=== PATIENT | female | born 1995 | race Two or more races ===

== ENCOUNTER 2020-12-16 10:50 | Inpatient (IN) | payer OTHER ==
[2020-12-16] MEDS ORDERED: LIDOCAINE HCL 1% PRESERVATIVE FREE - 30ML VIAL ONE (12:22)
[2020-12-16] MEDS ORDERED: OXYTOCIN 20 UNITS in 0.9% NS 20 UNIT/1,000 ML INFUS.BAG IV ONE ×2 (12:22→16:00)
[2020-12-16] MEDS ORDERED: WITCH HAZEL 50% (TUCKS) 40 PAD/JAR PAD TP PRN (12:43)
[2020-12-16] MEDS ORDERED: BENZOCAINE 28 GM HEMORRHOIDAL OINTMENT TP PRN (12:43)
[2020-12-16] MEDS ORDERED: ACETAMINOPHEN 325 MG TABLET (FP) PO PRN (12:43)
[2020-12-16] MEDS ORDERED: BENZOCAINE 20% 57 GM BOTTLE TP PRN (12:43)
[2020-12-16] MEDS ORDERED: IBUPROFEN 600 MG TABLET (FP) PO PRN (12:43)
[2020-12-16] MEDS ORDERED: BISACODYL 10 MG SUPP.RECT RC PRN (12:43)
[2020-12-16] MEDS ORDERED: METHYLERGONOVINE MALEATE 0.2 MG/1 ML AMP IM PRN (12:43)
[2020-12-16] MEDS ORDERED: OXYTOCIN 20 UNITS in 0.9% NS 20 UNIT/1,000 ML INFUS.BAG IV SCH (12:45)
[2020-12-16] MEDS ORDERED: ELECTROLYTE-148 SOLN 1,000 ML IV SCH (12:45)
[2020-12-16 14:04] LABS: COCAINE, UR NEGATIVE (NEGATIVE); METHADONE, UR NEGATIVE (NEGATIVE); OPIATES, URI NEGATIVE (NEGATIVE); URINE BARBITURATES NEGATIVE (NEGATIVE)
[2020-12-16 14:09] LABS: URINE BENZODIAZEPINES NEGATIVE (NEGATIVE)
[2020-12-16 14:10] LABS: PHENCYCLIDINE,URINE NEGATIVE (NEGATIVE); URINE AMPHETAMINES NEGATIVE (NEGATIVE)
[2020-12-16 14:30] LABS: HEMATOCRIT 33.5 % (32.4-45.2); HEMOGLOBIN 11.3 GM/dL (10.7-15.3); MCH 28.9 pg (25.7-33.7); MCHC 33.8 g/dl (32.0-36.0); MEAN CELL VOLUME 85.4 fl (80-96); MEAN PLT VOLUME 8.8 fl (7.5-11.1); PLATELET COUNT 231 10^3/uL (134-434); RBC 3.92 M/mm3 (3.60-5.2); RDW 14.8 % (11.6-15.6); WHITE BLOOD COUNT 15.9 K/mm3 (4.0-10.0)
[2020-12-16 14:35] LABS: PROTHROMBIN TIME (PATIENT) 12.1 SEC (9.7-13.0)
[2020-12-16 14:37] LABS: ACTIVATED PTT 25.9 SECONDS (25.2-36.5)
[2020-12-16 14:44] LABS: ALBUMIN 2.7 g/dl (3.4-5.0)
[2020-12-16 14:45] LABS: BLOOD UREA NITROGEN 5.7 mg/dL (7-18)
[2020-12-16 14:48] LABS: CREATININE 0.6 mg/dL (0.55-1.3)
[2020-12-16 14:50] VITALS: BMI 33.6
[2020-12-16 15:12] LABS: BILIRUBIN,TOTAL 0.4 mg/dL (0.2-1)
[2020-12-16 15:29] LABS: ANISOCYTOSIS 1+; MACROCYTOSIS 1+; PLATELET ESTIMATE NORMAL
[2020-12-16 15:37] LABS: HIV INTERPRETATION NEGATIVE (NEGATIVE)
[2020-12-16] MEDS ORDERED: ACETAMINOPHEN 325 MG TABLET (FP) ONE (16:00)
[2020-12-17 08:44] LABS: BASO % 0.2 % (0-2.0); EOS % 0.2 % (0-4.5); HEMOGLOBIN 9.6 GM/dL (10.7-15.3); LYMPH % 19.1 % (8-40); MCH 29.3 pg (25.7-33.7); MCHC 34.3 g/dl (32.0-36.0); MEAN CELL VOLUME 85.3 fl (80-96); MEAN PLT VOLUME 8.8 fl (7.5-11.1); MONO % 6.8 % (3.8-10.2); NEUT % 73.7 % (42.8-82.8); PLATELET COUNT 208 10^3/uL (134-434); RBC 3.29 M/mm3 (3.60-5.2); RDW 14.5 % (11.6-15.6); WHITE BLOOD COUNT 11.9 K/mm3 (4.0-10.0)
[2020-12-17] MEDS ORDERED: PRENATAL VITAMINS W/ FOLIC ACID TABLET (FP) PO SCH (10:00)
[2020-12-17 12:14] VITALS: BP 113/54; PULSE 72; TEMP 98.2
[2020-12-17] MEDS ORDERED: SENNOSIDES/DOCUSATE COMBO (SENNA PLUS) TABLET (UD) PO PRN (22:00)
== END 2020-12-17 14:36 | disposition home or self-care (01) | DRG 560 ==
LOC: JDEL 10:50 → JLDR 12:08 → J3W 16:05
PROVIDERS: ADMIT Obstetrics & Gynecology; ATTEND Obstetrics & Gynecology
PROC: 10E0XZZ Delivery of Products of Conception, External Approach (ICD-10-PCS; principal; 2020-12-16)
PROC: 0W8NXZZ Division of Female Perineum, External Approach (ICD-10-PCS; 2020-12-16)
PROC: 0HQ9XZZ Repair Perineum Skin, External Approach (ICD-10-PCS; 2020-12-16)
DX: O60.14X0 Preterm labor third trimester with preterm delivery third trimester, not applicable or unspecified (principal); O70.0 First degree perineal laceration during delivery; Z3A.36 36 weeks gestation of pregnancy; Z37.0 Single live birth
CPT/HCPCS: 36415; 59025; 59409; 80048; 80053; 80307; 85025; 85610; 85730; 86762; 86780; 86850; 86900; 86901; 87340; 87389; C9803; U0003; U0005